=== PATIENT | female | born 1950 | race Caucasian/White ===

== ENCOUNTER 2019-12-29 15:45 | Outpatient (CLI) | payer MEDICARE, SELFPAY ==
--- NOTE | 2019-12-29 15:53 | XR_ITS ---
WS: [id number] DEXA (DUAL ENERGY X-RAY ABSORPTIOMETRY) Bone mineral density was performed using a [employer] machine. HISTORY: ASYMPTOMATIC POSTMENOPAUSAL STATUS COMPARISON: None available. Lumbar spine BMD (L1-L4): 0.972 g/cm2 12/29/2019 T score: -1.7 Z score: 0.5 Total hip BMD: Left: 0.661 g/cm2. T score: -2.8 Z score: -0.9 Right: 0.704 g/cm2. T score: -2.4 Z score: -0.6 10 year probability of a major osteoporotic fracture is 25%. XR/XR DEXA axial skeleton* 77042 IMPRESSION: OSTEOPOROSIS based upon the WHO classification for females.
== END 2019-12-29 15:46 | disposition home or self-care (01) ==
LOC: RADWPI 15:52
PROVIDERS: Family Provider Internal Medicine; PCP Internal Medicine; Visit Provider Internal Medicine
DX: Z78.0 Asymptomatic menopausal state (principal); M81.0 Age-related osteoporosis without current pathological fracture
CPT/HCPCS: 77080

== ENCOUNTER → 2020-06-27 09:43 | Outpatient (BNVA) | payer MEDICARE, SELFPAY | PROVIDERS: Family Provider Internal Medicine; PCP Internal Medicine; Visit Provider Internal Medicine | DX: Z20.822 Contact with and (suspected) exposure to COVID-19 (principal); Z11.52 Encounter for screening for COVID-19 | CPT/HCPCS: 87635 ==

== ENCOUNTER 2020-07-04 13:00 | Outpatient (CLI) | payer MEDICARE, SELFPAY ==
--- NOTE | 2020-07-04 13:32 | PFTS_ITS ---
Date of Study:07/04/20 Date of Dictation: 07/04/2020 MECHANICS: Forced vital capacity (FVC) is normal. Forced expiratory volume in one second (FEV1) is reduced 59% FEV1/FVC is reduced. FLOW VOLUME LOOP: Scooping of expiratory limb suggestive of airway obstruction . LUNG VOLUMES: Not measured DIFFUSING CAPACITY FOR CARBON MONOXIDE: Not measured . INTERPRETATION: The spirometry suggestive of severe airway obstruction. Please correlate clinically. MTDD
--- NOTE | 2020-07-11 14:42 | PFTS_ITS ---
Date of Study: 07/04/2020 Date of Dictation:07/04/2020 MECHANICS: Forced vital capacity (FVC) is normal. Forced expiratory volume in one second (FEV1) is reduced 59% FEV1/FVC is reduced. FLOW VOLUME LOOP: Scooping of expiratory limb suggestive of airway obstruction . LUNG VOLUMES: Not measured DIFFUSING CAPACITY FOR CARBON MONOXIDE: Not measured . INTERPRETATION: The spirometry suggestive of moderate airway obstruction. Please correlate clinically. MTDD
== END 2020-07-04 13:01 | disposition home or self-care (01) ==
LOC: RT 13:03
PROVIDERS: PCP Internal Medicine; Visit Provider Internal Medicine
DX: J44.9 Chronic obstructive pulmonary disease, unspecified (principal); Z20.822 Contact with and (suspected) exposure to COVID-19
CPT/HCPCS: 94010

== ENCOUNTER 2020-07-29 09:41 | Outpatient (CLI) | payer MEDICARE, SELFPAY ==
[2020-08-01 15:27] LABS: Alternaria Alternata (M6) Ige <0.10 kU/L; Alternaria Class 0; Bermuda Class 0/1; Bermuda Grass (G2) Ige 0.12 kU/L; Cat Dander (E1) Ige 4.85 kU/L; Cat Dander Class 3; Common Ragweed (Short) (W1) Ig 0.26 kU/L; D. Farinae Class 4; Dermatophagoides Class 5; Dog Dander Class 3; Elm (T8) Ige 0.11 kU/L; Elm Class 0/1; English Plantain (W9) Ige 0.14 kU/L; English Plantain Class 0/1; House Dust Class 3; Immunoglobulin E 657 kU/L (<OR=114); Immunoglobulin E 690 kU/L (<OR=114); Johnson Grass Cl 1; June Grass Class 3; June Grass(Kentucky Blue) (G8) 6.24 kU/L; Lamb'S Quarters (Goose Foot) 0.19 kU/L; Lamb'S Quarters Class 0/1; Maple (Box Elder) (T1) Ige 0.17 kU/L; Maple Class 0/1; Meadow Fescue (G4) Ige 7.14 kU/L; Meadow Fescue Class 3; Mucor Racemosus Class 0/1; Oak (T7) Ige 0.17 kU/L; Oak Class 0/1; Orchard Grass (Cocksfoot) (G3) 5.68 kU/L; Penicillium Class 0/1; Penicillium Notatum (M1) Ige 0.11 kU/L; Perennial Rye Grass (G5) Ige 5.43 kU/L; Perennial Rye Grass Class 3; Ragweeed Class 0/1; Rough Marsh Elder (W16) Ige 0.11 kU/L; Rough Marsh Elder Class 0/1; Sweet Vernal Class 3; Sweet Vernal Grass (G1) Ige 4.54 kU/L; Timothy Grass (G6) Ige 6.33 kU/L; Timothy Grass Class 3
[2020-08-03 22:08] LABS: Aspergillus Fumigatus, Igg Ab, 21.6 mg/L (<=102)
== END 2020-07-29 09:42 | disposition home or self-care (01) ==
PROVIDERS: PCP Internal Medicine; Visit Provider Internal Medicine Critical Care Medicine
DX: R06.02 Shortness of breath (principal); J45.909 Unspecified asthma, uncomplicated
CPT/HCPCS: 36415; 82785; 86003

== ENCOUNTER 2020-08-01 10:17 | Outpatient (CLI) | payer MEDICARE, SELFPAY ==
--- NOTE | 2020-08-01 10:26 | CT_ITS ---
WS: [id number] LDCT LUNG CANCER SCREENING HISTORY: HX OF TOBACCO USE TECHNIQUE: Axial imaging performed from the apices to 1 cm below the costophrenic angles. Coronal and sagittal reformats are submitted with axial MIP series. All CT scans at [facility] use at least one of these dose optimization techniques: automated exposure control; mA and/or kV adjustment per patient size (includes targeted exams where dose is matched to clinical indication); or iterativ e reconstruction. DLP: 80.09 mGy.cm DIvol: 2.38 mGy COMPARISON: 03/09/2014 Diagnostic quality: Satisfactory Lung Nodules: 3 mm nodule at the lingula may be calcified. Due to its small size calcifications diffi cult to determine. There is an additional pleural-based 5 mm nodule at the RIGHT lung base, image 173 of series 3 which was present on prior study from 2013. Very subtle area of groundglass attenuation in the anterior RIGHT upper lobe. Lungs: Subsegmental areas of linear atelectasis at the lingula and RIGHT middle lobe. Minimal depende nt changes at the lung bases bilaterally. Heart: Normal size. Other findings: Mild atherosclerosis aorta. Mild coronary artery atherosclerosis. Mild atrophy for po le RIGHT kidney. Increase in thoracic kyphosis. CT/CT lung screening [id number] IMPRESSION: LUNG-RADS: 2-Benign Appearance or Behavior FOLLOW UP: 12 Month: Continue annual screening with LDCT OTHER FINDINGS (S MODIFIER): None.
== END 2020-08-01 10:18 | disposition home or self-care (01) ==
LOC: RAD 10:19
PROVIDERS: PCP Internal Medicine; Visit Provider Internal Medicine Critical Care Medicine
DX: Z12.2 Encounter for screening for malignant neoplasm of respiratory organs (principal); Z87.891 Personal history of nicotine dependence; I70.0 Atherosclerosis of aorta; I25.10 Atherosclerotic heart disease of native coronary artery without angina pectoris; N26.1 Atrophy of kidney (terminal)
CPT/HCPCS: 71271

== ENCOUNTER 2021-07-19 10:50 | Outpatient (CLI) | payer MEDICARE, SELFPAY ==
--- NOTE | 2021-07-19 10:56 | XR_ITS ---
WS: [id number] Right shoulder, 3 views, 07/19/2021 Clinical Data: PAIN IN R SHOULDER Comparison: Right shoulder, 11/14/2011. Findings: No new fractures or dislocations are seen. The AC joint is normal. The adjacent right clavicle, right scapula and ribs are normal. The soft tissues are unremarkable. There is an old healed right mid shaft clavicular fracture. XR/XR shoulder RT min 2V* [id number] Impression: Negative right shoulder.
== END 2021-07-19 10:51 | disposition home or self-care (01) ==
LOC: RAD 10:54
PROVIDERS: PCP Internal Medicine; Visit Provider Internal Medicine
DX: M25.511 Pain in right shoulder (principal)
CPT/HCPCS: 73030

== ENCOUNTER → 2021-08-23 10:33 | Outpatient (BNVA) | payer MEDICARE, SELFPAY | PROVIDERS: PCP Internal Medicine; Referring Provider Internal Medicine; Visit Provider Specialist | DX: M25.511 Pain in right shoulder (principal) | CPT/HCPCS: 73030 ==

== ENCOUNTER → 2021-08-28 13:11 | Outpatient (BNVA) | payer MEDICARE, SELFPAY | PROVIDERS: PCP Internal Medicine; Visit Provider Internal Medicine Critical Care Medicine | DX: J44.9 Chronic obstructive pulmonary disease, unspecified (principal); Z87.891 Personal history of nicotine dependence; G47.34 Idiopathic sleep related nonobstructive alveolar hypoventilation; J30.9 Allergic rhinitis, unspecified; E03.9 Hypothyroidism, unspecified; Z99.81 Dependence on supplemental oxygen | CPT/HCPCS: 99214 ==

== ENCOUNTER 2021-10-13 07:20 | Outpatient (CLI) | payer MEDICARE, SELFPAY ==
--- NOTE | 2021-10-13 08:00 | MR_ITS ---
WS: [id number] MRI RIGHT SHOULDER NONCONTRAST TECHNIQUE: Sagittal T2, coronal T1, T2 and proton density imaging. Axial gradient PDE imaging. CLINICAL INFORMATION: M25.519 - Pain in unspecified shoulder COMPARISON: None. FINDINGS: Mild degenerative arthritis AC joint with mild downsloping acromion. Slight subacromial spurring. Sma ll amount of fluid and edema at the AC joint. Tiny insertional tear at the distal supraspinatus. Small intrasubstance tear involving the supraspina tus approximately 2 cm proximal to the insertion deep to the subacromial spurring. Supraspinatus is o therwise intact. Mild tendinopathy supraspinatus. Tiny insertional tear at the distal infraspinatus w hich is otherwise normal. Normal teres minor. Normal subscapularis. Normal biceps tendon in the bicipital groove. Intra-articul ar biceps tendon is intact. Degenerative fraying of the glenoid labrum. Moderate degenerative arthrit is glenohumeral joint. Normal bone marrow signal in the humerus and glenoid. MR/MR shoulder RT wo con* [id number] IMPRESSION: 1. Mild degenerative arthritis at the AC joint with mild edema and fluid. Mild downsloping acromion with subacromial spurring. 2. Small longitudinal intrasubstance tear of the supraspinatus deep to the sub acromial spurring. Additional tiny insertional tear. Mild supraspinatus tendino ritesh. 3. Tiny insertional tear at the distal infraspinatus insertion. 4. Rotator cuff is otherwise normal. 5. Normal biceps tendon in the bicipital groove. Intra-articular biceps tendon is normal. 6. No other acute findings.
== END 2021-10-13 07:21 | disposition home or self-care (01) ==
LOC: RAD 07:22
PROVIDERS: PCP Internal Medicine; Visit Provider Specialist
DX: M25.511 Pain in right shoulder (principal)
CPT/HCPCS: 73221

== ENCOUNTER 2021-10-18 11:00 | Outpatient (CLI) | payer MEDICARE, SELFPAY | END 2021-10-18 11:01 | disposition home or self-care (01) | LOC: SLEEP 10-19 10:18 | PROVIDERS: PCP Internal Medicine; Visit Provider Internal Medicine Critical Care Medicine | DX: G47.34 Idiopathic sleep related nonobstructive alveolar hypoventilation (principal) | CPT/HCPCS: 94762 ==

== ENCOUNTER → 2023-05-08 13:32 | Outpatient (BNVA) | payer MEDICARE, SELFPAY | PROVIDERS: PCP Internal Medicine; Referring Provider Internal Medicine; Visit Provider Surgery | DX: L98.9 Disorder of the skin and subcutaneous tissue, unspecified (principal) | CPT/HCPCS: 99213 ==

== ENCOUNTER → 2023-06-20 10:42 | Outpatient (BNVA) | payer MEDICARE, SELFPAY | PROVIDERS: PCP Internal Medicine; Referring Provider Surgery; Visit Provider Student in an Organized Health Care Education/Training Program | DX: L98.9 Disorder of the skin and subcutaneous tissue, unspecified (principal); M79.642 Pain in left hand | CPT/HCPCS: 73130; 99214 ==

== ENCOUNTER 2023-07-10 07:37 | Day surgery (SDC) | payer MEDICARE, SELFPAY ==
[2023-07-10 07:49] VITALS: BP 141/89; PULSE 75; RESP 18; O2SAT 95
--- NOTE | 2023-07-10 07:56 | ANES.PREANE2 ---
Pre-Anesthetic Assessment Height/Weight: Height 1.52 m Pulse Resp BP Pulse Ox O2 Del Method 75 18 141/89 95 Room Air 07/10/23 07:49 07/10/23 07:49 07/10/23 07:49 07/10/23 07:49 07/10/23 07:49 Operation Date: 07/10/23 09:15 Proposed Procedures p Excision Mass/Lesion Upper Extremity Finger Cyst Excision/(Left) - Jensen Refugio, DO Last intake: Intake Last Liquid Date 07/09/23 Last Liquid Time 17:00 Last Solid Date 07/09/23 Last Solid Time 17:00 Social No alcohol Exam alert, oriented x 3, clear to auscultation bilaterally and regular rate & rhythm Airway Submandibular: within normal limits Cervical ROM: within normal limits Mallampati: Class I History/ROS No significant history except as noted Anesthetic Plan ASA status: 2 Anesthesia: MAC Risk of > 500 ml blood loss (7ml/kg in children): No Medications/Allergies Home Medications Medication Instructions Recorded Confirmed Last Taken Type fluticasone propionate 50 2 spray intranasal DAILY 07/29/20 07/09/23 07/10/23 05:00 History mcg/actuation nasal spray,suspension (Flonase Allergy Relief) levothyroxine 88 mcg capsule 88 mcg PO DAILY 07/29/20 07/09/23 07/10/23 05:00 History fluticasone fur. 100 mcg-umeclid 1 inh inhalation DAILY 30 days #60 03/02/21 07/09/23 07/10/23 05:00 Rx 62.5 mcg-vilant 25 mcg ea inhalat.powder (Trelegy Ellipta) Allergies Allergy/AdvReac Type Severity Reaction Status Date / Time No Known Allergies Allergy Verified 06/20/23 10:45 [facility] Anesthesia Medical History COVID-19 Chronic obstructive pulmonary disease Allergies Hypothyroidism Surgical History Hx of colonoscopy with polypectomy 5 or 6 yrs ago History of kidney surgery History of bladder surgery Social History Smoking and tobacco/nicotine status: former use of tobacco/nicotine Quit status (tobacco/nicotine): has quit using Year quit tobacco: 2007 - 1PPD x 35 Years Former quit date comment: started at age 19 years Second hand smoke exposure: Yes Alcohol intake: never Substance/Drug Use: never Lives independently: Yes Household members: spouse Marital status: Current occupational status: retired Pets and animals: Yes Do you think of yourself as: Straight/Heterosexual Current gender identity: Female Data Anesthesia Cardiac Studies: No Data to Display
--- NOTE | 2023-07-10 08:16 | W.PM.OPSUD ---
Surgery/Procedure H&P Update DATE OF PROCEDURE: July 10, 2023 DATE H&P PERFORMED: 06/20/23 H&P UPDATE INFORMATION: I have reviewed H&P completed within last 30 days, I have examined patient prior to procedure and No changes to prior documentation PREOP DIAGNOSIS: Left index finger cyst/mass PRIMARY INDICATION FOR PROCEDURE: Left index finger cyst/mass PLANNED PROCEDURE: Operation Date: 07/10/23 09:15 Proposed Procedures p Excision Mass/Lesion Upper Extremity Finger Cyst Excision/(Left) - Jensen Colbert DO
[2023-07-10] MEDS: acetaminophen 1,000 MG/100 ML PIGGYBACK 400 MG IV (08:21)
[2023-07-10] MEDS: scopolamine 1.5 Patch 1 PATCH TRANSDERMA (08:21)
[2023-07-10] MEDS: sodium chloride 0.9% 1,000 ML 30 ML IV (08:34)
[2023-07-10] MEDS: ketorolac 30 mg/mL INJ IVP (08:35)
[2023-07-10 08:39] VITALS: BMI 20.1
[2023-07-10] MEDS: ceFAZolin 2,000 MG in sodium chloride 0.9% (plus) 50 ML 100 MG IV (08:44)
[2023-07-10] MEDS: BUPivacaine 0.5% INJ 10 mL INJECTION (08:55)
[2023-07-10] MEDS: BUPivacaine 0.5% INJ 30 mL INJECTION (08:55)
--- NOTE | 2023-07-10 09:21 | P.OP_ITS ---
Operative Report Date of procedure: July 10, 2023 Surgeon: Jensen Colbert DO Offshore Diver: Neto Colbert PA-C: PA was necessary for assistance in this case with hand positioning to execute the procedure, retraction and protection of neurovascular structures as well as to assist with wound closure and dressing application. Procedure: Preoperative diagnosis: Left index finger cyst post-op diagnosis: Left?index?finger epidermal inclusion cyst Procedure done: Left index finger epidermal inclusion cyst excision Surgeon: Jensen Colbert DO Estimated blood loss: 2 mL Tourniquet time 7 minutes IV fluids: 500 mL Complications: None Findings: See operative report narrative Condition: stable Disposition: same day Brief History: Patient presents to the outpatient setting with findings consistent with a Left Index finger ?cyst.? She has been worked up in the outpatient setting and is failed conservative treatment approach.? Patient has Left Index finger cyst and Patient's failed multiple needle aspirations.? She wishes to proceed with surgical intervention.? We talked about the risk benefits complications and alternatives with surgical nonsurgical treatment options.? Understanding risk of surgery she agrees to proceed with a Left Index finger?cyst?excision.? All questions answered. Procedure: Patient was seen evaluated in the preoperative holding area.? Consent was reviewed and signed with patient.? Correct extremity was then marked.? Patient was then seen and evaluated by the anesthesia department once cleared for surgery patient was then taken back to the operative suite patient was placed in supine position and all bony prominences well-padded the patient was properly secured to the bed.? Armboard was applied to the Left upper extremity. This point time the Left upper extremity was then prepped and draped in standard orthopedic fashion.? A final timeout was performed.? Patient received appropriate preoperative antibiotics. Prior to proceeding with incision sites I then performed digital block of the Left Index finger under sterile aseptic technique Finger turnicot was used over the Left Index finger to exsanguinate the digit. ? Left Index finger was then identified as well as the ?cyst?over the volar finger pulp. I then subsequently made incision on the ulnar side of the digit and made this directly over the cyst. Sharp scalpel excision was made just through skin switch to Littler dissection scissors a large cyst was subsequently identified and I mobilized on all aspects of the cyst and then utilize electrocautery to bring this at the stump and this was excised as appropriate had a white toothpaste appearance no infectious appearing nature at this point in time. We will send for cultures as well as for pathology. I then subsequently utilized a rongeur as well as electrocautery to debride the entire bed where the cyst was. I was satisfied with this I then thoroughly irrigated the wound bed.? No involvement was noted deep in the flexor tendons were uninvolved. ? Next I then removed finger turnicot wound bed was then thoroughly irrigated hemostasis was maintained with bipolar electrocautery.? Next I closed the incision with interrupted nylon suture.? Incision sites were then dressed with Xeroform 4 x 4's Kerlix Jazlyn wrap and an Wilfrido wrap.? Patient was then awakened from anesthesia and taken to PACU in stable condition. Disposition: Patient taken to PACU in stable condition recovering well.? Dressing on in place clean dry and intact.? Patient was receive appropriate discharge instruction as well as pain medication postoperatively.? Patient may be allowed weightbearing as tolerated to the Left hand and encourage range of motion once dressing come down after 72 hours.? Patient to follow-up with me in the office in 2 weeks.? Patient understands and agrees with current plan.? All questions answered.
[2023-07-10 09:24] VITALS: BP 122/80; PULSE 71; RESP 18; TEMP 36.1; O2SAT 100
--- NOTE | 2023-07-10 09:28 | P.BOP_ITS ---
Date of Procedure: [July 10, 2023] Surgeon: [Dr. Sayra DO] Child Care Director(s): [Neto Colbert PA-C] Procedure(s) performed: [Left index finger cyst excision] Findings of the procedure(s): [Left index finger cyst] Estimated blood loss: [2 ml] Specimen(s) removed: [finger Cyst- sent to lab] Post-operative diagnosis: [Left index finger cyst]
[2023-07-10 09:30] VITALS: BP 134/79; PULSE 66; RESP 18; O2SAT 97
--- NOTE | 2023-07-10 09:34 | P.PCN_ITS ---
PACU note Narrative: Patient is a 73-year-old female that just underwent a left finger cyst excision. Patient transferred to PACU in stable condition. Pain is well controlled. Dressing on hand is dry and in place. Patient's fingers are warm and well- perfused. Patient can wiggle fingers. normal cap refill under 2 seconds. Patient has normal elbow range of motion. Unable to assess sensation due to residual localized anesthetic. Exam: awake Disposition: discharged
[2023-07-10 09:36] VITALS: BP 135/76; PULSE 61; RESP 18; O2SAT 97
[2023-07-10 09:46] VITALS: BP 121/58; PULSE 62; RESP 16; TEMP 36.4; O2SAT 96
[2023-07-10 10:05] VITALS: BP 129/70; PULSE 58; RESP 16; TEMP 36.6; O2SAT 98
--- NOTE | 2023-07-10 10:30 | ANE.PACU2 ---
Inpatient post-anesthesia follow up: Airway intact: Yes Vital signs: Temperature 97.8 F Pulse Rate 58 Respiratory Rate 16 Blood Pressure 129/70 Pulse Oximetry 98 Oxygen Delivery Me thod Room Air Oxygen Flow Rate Fraction of Inspir ed Oxygen Hydration adequate: Yes Nausea and vomiting: No Pain level: 1 Mental status: Baseline
== END 2023-07-10 10:30 | disposition home or self-care (01) ==
PROVIDERS: PCP Internal Medicine; Visit Provider Student in an Organized Health Care Education/Training Program
PROC: (CPT 11421; principal; 2023-07-10 09:10)
DX: L72.0 Epidermal cyst (principal); J44.9 Chronic obstructive pulmonary disease, unspecified; E03.9 Hypothyroidism, unspecified; Z87.891 Personal history of nicotine dependence
CPT/HCPCS: 11421; 87070; 87075; 87205; 88304; J0131; J0690; J1885; J2704; J3010; J3490; J7030

== ENCOUNTER → 2023-07-23 13:02 | Outpatient (BNVA) | payer MEDICARE, SELFPAY | PROVIDERS: PCP Internal Medicine; Visit Provider Physician Assistant | DX: L72.0 Epidermal cyst (principal) | CPT/HCPCS: 99024 ==

== ENCOUNTER 2023-11-14 13:50 | Outpatient (CLI) | payer MEDICARE, SELFPAY | END 2023-11-14 13:51 | disposition home or self-care (01) | PROVIDERS: PCP Internal Medicine; Visit Provider Dermatology | DX: L63.8 Other alopecia areata (principal) | CPT/HCPCS: 36415; 82728; 83540; 83550; 84439; 84443; 84630; 99204 ==